=== PATIENT | female | born 1980 | race American Indian/Alaskan Native ===

== ENCOUNTER 2017-02-22 11:26 | Emergency (ER) | payer SELFPAY ==
[2017-02-22 11:56] VITALS: BP 117/65
[2017-02-22] MEDS: ROCEPHIN IM ONE (12:48)
[2017-02-22] MEDS: XYLOCAINE 1% MPF 5 mL INFILTRATI ONE (12:48)
[2017-02-22] MEDS: DECADRON IM ONE (12:48)
--- NOTE | 2017-02-22 13:05 | Emergency Department Report ---
- General Chief Complaint: Upper Respiratory Infection Stated Complaint: RESP ISSUES/WHEEZING/SKIN RASH Time Seen by Provider: 02/22/17 12:00 Source: patient Mode of arrival: Ambulatory Limitations: No Limitations - History of Present Illness MD Complaint: cough, sore throat, rhinorrhea, nasal congestion -: Gradual, month(s) (4) Severity: moderate Quality: aching Consistency: intermittent Improves With: nothing Worsens With: deep breaths Associated Symptoms: myalgias, rhinorrhea, nasal congestion, sore throat, cough , chest pain, rash, hoarseness. denies: fever, chills, diaphoresis, headache, stiff neck, shortness of breath, abdominal pain, nausea, vomiting, dysuria, confusion, right sweats, weight loss, epistaxis, ear pain Treatments Prior to Arrival: other (Mucinex) - Related Data Home Medications Medication Instructions Recorded Confirmed Last Taken Lisinopril/Hydrochlorothiazide 1 tab PO QDAY 07/18/16 07/18/16 Unknown [Zestoretic 10-12.5 mg] buPROPion [Wellbutrin] 150 mg PO DAILY 07/18/16 07/18/16 Unknown Previous Rx's Medication Instructions Recorded Last Taken Type Amoxicillin 1,000 mg PO BID #40 capsule 02/22/17 Unknown Rx Clotrimazole 1% [Lotrimin 1%] 1 applic TP BID #45 tube 02/22/17 Unknown Rx Fluconazole [Diflucan TAB] 200 mg PO QDAY #30 tablet 02/22/17 Unknown Rx predniSONE [Deltasone] 40 mg PO QDAY 5 Days 02/22/17 Unknown Rx Allergies Allergy/AdvReac Type Severity Reaction Status Date / Time No Known Allergies Allergy Verified 02/22/17 11:58 ED Review of Systems ROS: Stated complaint: RESP ISSUES/WHEEZING/SKIN RASH Other details as noted in HPI Constitutional: denies: chills, fever Eyes: denies: eye pain, eye discharge, vision change ENT: throat pain, congestion. denies: ear pain, epistaxis Respiratory: cough, wheezing. denies: shortness of breath, SOB with exertion, SOB at rest Cardiovascular: chest pain (with deep breathing). denies: palpitations Endocrine: no symptoms reported. denies: excessive sweating, flushing Gastrointestinal: denies: abdominal pain, nausea, diarrhea Genitourinary: denies: urgency, dysuria, discharge Musculoskeletal: denies: back pain, joint swelling, arthralgia Skin: rash (right distal posterior lower leg), change in hair/nails (right great toe nail discoloration). denies: lesions Neurological: denies: headache, weakness, paresthesias Psychiatric: denies: anxiety, depression Hematological/Lymphatic: denies: easy bleeding, easy bruising ED Past Medical Hx - Past Medical History Hx Hypertension: Yes Hx Psychiatric Treatment: Yes (depression / PTSD) - Surgical History Additional Surgical History: Cesearean x4. HERNIA REPAIR - Social History Smoking Status: Current Every Day Smoker Substance Use Type: Alcohol - Medications Home Medications: Home Medications Medication Instructions Recorded Confirmed Last Taken Type Lisinopril/Hydrochlorothiazide 1 tab PO QDAY 07/18/16 07/18/16 Unknown History [Zestoretic 10-12.5 mg] buPROPion [Wellbutrin] 150 mg PO DAILY 07/18/16 07/18/16 Unknown History Amoxicillin 1,000 mg PO BID #40 capsule 02/22/17 Unknown Rx Clotrimazole 1% [Lotrimin 1%] 1 applic TP BID #45 tube 02/22/17 Unknown Rx Fluconazole [Diflucan TAB] 200 mg PO QDAY #30 tablet 02/22/17 Unknown Rx predniSONE [Deltasone] 40 mg PO QDAY 5 Days 02/22/17 Unknown Rx ED Physical Exam - General Limitations: No Limitations General appearance: alert, in no apparent distress - Head Head exam: Present: atraumatic, normocephalic - Eye Eye exam: Present: normal appearance, PERRL, EOMI Pupils: Present: normal accommodation - ENT ENT exam: Present: mucous membranes moist, TM's normal bilaterally, normal external ear exam - Expanded ENT Exam Expanded Mouth exam: Present: normal external inspection Teeth exam: Present: normal inspection Throat exam: Positive: tonsillar erythema. Negative: tonsillomegaly, tonsillar exudate, R peritonsillar mass, L peritonsillar mass - Neck Neck exam: Present: normal inspection, full ROM. Absent: tenderness, meningismus, lymphadenopathy - Respiratory Respiratory exam: Present: normal lung sounds bilaterally, rhonchi. Absent: respiratory distress, rales, chest wall tenderness - Cardiovascular Cardiovascular Exam: Present: regular rate, normal rhythm. Absent: systolic murmur, diastolic murmur, rubs, gallop - GI/Abdominal GI/Abdominal exam: Present: soft, normal bowel sounds. Absent: tenderness - Extremities Exam Extremities exam: Present: normal inspection - Back Exam Back exam: Present: normal inspection - Neurological Exam Neurological exam: Present: alert, oriented X3 - Psychiatric Psychiatric exam: Present: normal affect, normal mood - Skin Skin exam: Present: warm, dry, intact, rash (dark discolorated skin with crusting suggestive of tinea, right great toe nail with yellowish discoloration) ED Course Vital Signs 02/22/17 11:52 Temperature 97.7 F Pulse Rate 76 Respiratory 18 Rate Blood Pressure 117/65 O2 Sat by Pulse 100 Oximetry ED Medical Decision Making - Radiology Data Radiology results: report reviewed, image reviewed CXR = NAP - Medical Decision Making Patient is non-toxic and hemodynamically stable. Images reviewed and discussed with patient and family in room. Critical care attestation.: If time is entered above; I have spent that time in minutes in the direct care of this critically ill patient, excluding procedure time. ED Disposition Clinical Impression: Tinea corporis, Onychomycosis, Bronchitis, Sinusitis Disposition: DISCHARGED TO HOME OR SELFCARE Is pt being admited?: No Does the pt Need Aspirin: No Condition: Good Instructions: Paronychia (ED), Tinea Corporis (ED), Sinusitis (ED), Acute Bronchitis (ED) Prescriptions: Amoxicillin 1,000 mg PO BID #40 capsule Clotrimazole 1% [Lotrimin 1%] 1 applic TP BID #45 tube Fluconazole [Diflucan TAB] 200 mg PO QDAY #30 tablet predniSONE [Deltasone] 40 mg PO QDAY 5 Days Referrals: PRIMARY CARE, [Primary Care Provider] - 3-5 Days Time of Disposition: 13:55
--- NOTE | 2017-02-22 13:38 | XRay Report ---
ROUTINE CHEST, TWO VIEWS: HISTORY: Cough. The trachea, heart, mediastinal contour, lung navarrete and bony thorax are unremarkable. IMPRESSION: Unremarkable chest x-ray.
== END 2017-02-22 14:03 | disposition home or self-care (01) ==
LOC: ED 11:26
DX: B35.4 Tinea corporis (principal); B35.1 Tinea unguium; J40 Bronchitis, not specified as acute or chronic; J32.9 Chronic sinusitis, unspecified; I10 Essential (primary) hypertension; F17.200 Nicotine dependence, unspecified, uncomplicated
CPT/HCPCS: 71020; 96372; 99283; J0696; J1100